=== PATIENT | female | born 1970 | race Caucasian/White ===

== ENCOUNTER 2025-01-20 23:46 | Emergency (ER) | payer BC, MEDICAID ==
[~2025-01-20] VITALS: Ht 167.6 cm; Wt 75.9 kg
[~2025-01-20 23:46] MED LIST: BACL10TA PO; GABA300C PO; HYDR50CA PO; PARO-154 PO; TRAZ-256 PO
--- NOTE | 2025-01-21 00:23 | ELECTROCARDIOGRAPH REPORT ---
[facility] Test Date: 2025-01-21 Test Time: 00:19:44 Pat Name: JESUS ANGUIANO Department: [facility] Patient ID: [id number] Room: Gender: F Business Attorney: : 1970 Requested By: ISAIAH DUPREE Order Number: [id number] Reading MD: Measurements Intervals [place] Rate: 97 P: 69 MI: 158 QRS: 66 QRSD: 102 T: 48 QT: 363 QTc: 461 Interpretive Statements Sinus rhythm Abnormal R-wave progression, early transition Probable inferior infarct, old Please click the below link to view image of tracing.
[2025-01-21 00:27] LABS: BASOPHILS # (AUTO) 0.1 X10'3 (0-0.2); BASOPHILS % (AUTO) 0.6 % (0-1); EOSINOPHILS # (AUTO) 0.4 X10'3 (0-0.9); HEMATOCRIT 40.3 % (35.0-45.0); HEMOGLOBIN 13.4 g/dl (12.0-16.0); LYMPHOCYTES # (AUTO) 3.3 X10'3 (1.1-4.8); LYMPHOCYTES % (AUTO) 30.2 % (21-51); MEAN CORPUSCULAR HEMOGLOBIN 26.5 PG (27.0-31.0); MEAN CORPUSCULAR HGB CONC 33.3 g/dL (33.0-36.5); MEAN CORPUSCULAR VOLUME 79.8 FL (78-98); MEAN PLATELET VOLUME 7.6 FL (7.4-10.4); MONOCYTES # (AUTO) 0.9 X10'3 (0-0.9); MONOCYTES % (AUTO) 7.7 % (2-12); NEUTROPHILS # (AUTO) 6.3 X10'3 (1.8-7.7); NEUTROPHILS % (AUTO) 57.5 % (42-75); PLATELET COUNT 256 X10'3 (140-440); RED BLOOD COUNT 5.05 X10'6 (4.20-5.60)
[2025-01-21 00:49] LABS: ALBUMIN 3.5 G/DL (3.4-5.0); ANION GAP 8 (8-16); BLOOD UREA NITROGEN 6 MG/DL (7-18); BUN/CREATININE RATIO 9.2 (10.0-20.0); CALCIUM 8.5 MG/DL (8.5-10.1); CHLORIDE 102 MMOL/L (99-107); CREATININE 0.65 MG/DL (0.40-0.90); GLUCOSE 101 MG/DL (70-104); POTASSIUM 3.6 MMOL/L (3.5-5.1); PRO BRAIN NATRIURETIC PEPTIDE 41 PG/ML (0-125); SODIUM 140 MMOL/L (135-145); TOTAL CARBON DIOXIDE 30.1 MMOL/L (24-32); eCRCL 90 ML/MIN; eGFR > 90 ML/MIN
--- NOTE | 2025-01-21 01:13 | RADIOLOGY REPORT ---
CHEST RADIOGRAPH Indication: CP Technique: Single frontal view of the chest was obtained COMPARISON: None FINDINGS: Lines and Tubes: None Lungs: Clear Pleura: No effusion. No pneumothorax. Cardiomediastinal contours: Unremarkable Bones: Unremarkable IMPRESSION: 1. No acute disease.
[2025-01-21 01:56] VITALS: TEMP 98.1
--- NOTE | 2025-01-21 03:05 | Physician Documentation ---
History of Present Illness ~ General Chief Complaint: Multiple Medical Complaints Stated Complaint: HEAT RELATED ISSUES Time Seen by MD: 01:28 Primary Medical Doctor: YADY OWENS History of Present Illness Initial Comments This is a lady who presents for evaluation of whole body cramping starting today after walking 4 hours in the heat. No particular palliating or aggravating factors. Similar to prior heat exertion, she feels that she might be dehydrated. She feels generally poor. No chest pain or difficulty breathing. No nausea, vomiting, diarrhea, abdominal pain. She states my feet a blowing up. She also tells me that she has "been alcoholic since I was 14, I am coming off alcohol". Last drink this morning. Feels anxious. Educated with the nurse that she needs medication refill, did not mentioned anything to me. Medication Reconciliation Allergies: Coded Allergies: risperidone (Verified Allergy, Intermediate, MUSCLE SPASMS RESTLESS LEGS, 01/21/25) fluoxetine (Verified Allergy, Unknown, 01/21/25) Scheduled Baclofen (Baclofen), 1 TAB PO BID, (Reported) Gabapentin (Neurontin), 300 MG PO DAILY, (Reported) Hydroxyzine Pamoate (Vistaril), 1 CAP PO TID, (Reported) Paroxetine HCl (Paxil), 1 TAB PO DAILY, (Reported) Trazodone HCl (Trazodone HCl), 1 TABLET PO HS, (Reported) Past Medical History Past Medical History: Bronchitis, Cirrohsis, Hepatitis C, Chronic Back Pain, Extremity Fracture, Anxiety, Depression, Panic Disorder Past Surgical History: cholecystectomy, orthopedic surgeries Alcohol Use: Alcoholic Drug Use: methamphetamine Lives In: Homeless Occupation: unemployed Review of Systems ROS 10 point review of systems was performed and unless noted above in HPI is negative for acute process/complaint. Physical Exam Physical Exam Vital Signs: Temperature: 98.1, Source: Oral, Heart Rate: 89, Respiratory Rate: 13, BP: 121/77, Pulse Oximetry: 100, Weight: 75.910 Oxygen Flow Rate: 0 Physical Exam Physical examination: GENERAL: Awake, alert, oriented, GCS 15, no apparent distress, non-toxic appearing, answers questions, follows commands appropriately. Examined in bed 11. HEENT: Atraumatic, normocephalic, pupils equal, extraocular muscles intact Active gross movements, sclerae anicteric, mucus membranes moist, no stridor. NECK: Midline, no JVD CARDIOVASCULAR: Good skin perfusion without evidence of pallor, mottling. PULMONARY: Nonlabored, symmetric chest rise, no audible wheezing, no accessory muscle use, no respiratory distress, speaking in full sentences. GASTROINTESTINAL: Not distended. NEUROLOGIC: Lucid with normal mental status. Normal facial symmetry. Moves all extremities symmetrically and with purpose. No truncal ataxia. Speech is fluid without evidence of dysarthria or aphasia, no focal deficits appreciated. EXTREMITIES: Acute deformities Skin: warm, dry PSYCHIATRIC: Normal affect, normal insight, normal concentration. Focused exam: [] No tongue fasciculation, no tremor Progress Results/Orders Results/Orders Orders - YUNG DUPREE DO Chest,Single View (01/21/25 00:31) Monitor (01/21/25 00:12) Saline Lock (01/21/25 00:12) Oxygen (01/21/25 00:12) Hs Troponin I W Calculations (01/21/25 03:12) Completed Orders - YUNG DUPREE DO Chest,Single View (01/21/25 00:31) Cbc/Diff (01/21/25 00:12) BMP (01/21/25 00:12) PBNP (01/21/25 00:12) Electrocardiogram (01/21/25 00:12) Hs Troponin I W Calculations (01/21/25 00:12) Hs Troponin I W Calculations (01/21/25 02:12) Vital Signs 01/21/25 01/21/25 00:06 01:56 Temp 98.1 98.1 Pulse 97 89 Resp 16 13 B/P (MAP) 147/91 121/77 (92) Pulse Ox 97 100 O2 Flow Rate 0 0 Laboratory Tests Test 01/21/25 00:21 01/21/25 02:03 White Blood Count 11.0 Red Blood Count 5.05 Hemoglobin 13.4 Hematocrit 40.3 Mean Corpuscular Volume 79.8 Mean Corpuscular Hemoglobin 26.5 L Mean Corpuscular Hemoglobin Concent 33.3 Red Cell Distribution Width 13.0 Platelet Count 256 Mean Platelet Volume 7.6 Neutrophils (%) (Auto) 57.5 Lymphocytes (%) (Auto) 30.2 Monocytes (%) (Auto) 7.7 Eosinophils (%) (Auto) 4.0 Basophils (%) (Auto) 0.6 Neutrophils # (Auto) 6.3 Lymphocytes # (Auto) 3.3 Monocytes # (Auto) 0.9 Eosinophils # (Auto) 0.4 Basophils # (Auto) 0.1 CBC Comment Sodium Level 140 Potassium Level 3.6 Chloride Level 102 Carbon Dioxide Level 30.1 Anion Gap 8 Blood Urea Nitrogen 6 L Creatinine 0.65 Estimated GFR/1.73 m2 > 90 BUN/Creatinine Ratio 9.2 L Glucose Level 101 Calcium Level 8.5 Troponin I High Sensitivity 4 < 4 L Pro-B-Type Natriuretic Peptide 41 Albumin 3.5 Chemistry Comments Troponin I High Sens Percent Delta Troponin I Hi Sens Absolute Change Medical Decision Making Findings Facility Status: ED Holds, RME process The plan was discussed with the patient, who demonstrates clear understanding of the plan and is in agreement with the plan unless otherwise noted in the chart. All questions have been answered, all concerns were addressed unless otherwise documented. I was available throughout their ED stay for frequent reassessment and questions. Differential Diagnoses (considered and possible or likely): [Dehydration, electrolyte derangement, less likely ACS, less likely infectious process, clinically not consistent with the alcohol withdrawal the alcoholism is on dif ferential diagnosis] ??Differential Diagnoses (considered and unlikely, not requiring evaluation currently): [No evidence of lateralizing sinuses suspect a stroke] MDM Data Please see [facility] for the following: Independent Historians and external Records Review. Historian: [Patient] Independent Historians: ?[Non] Medication Management: [Reviewed medication list] Social History and determinants: [Reviewed] Please see the body of the note for the following: Any independent interpretations of ECG, imaging studies. All vitals signs/haemodynamics, ordered tests were independently reviewed and interpreted by myself. Nursing triage complaint and vitals reviewed, additional nursing notes were reviewed as available and I agree unless otherwise noted or documented in contradiction in the chart Vital Signs: Independently reviewed Labs: Independently interpreted Imaging: Independently interpreted Old Medical Records: Independently reviewed, see [facility] for relevant summary and information Pulse Oximetry: [97%] interpreted as [normal on room air] by me [Procurement Professional: [Regular Rate, Regular rhythm, no ectopy, NSR] reviewed and interpreted by me] Additionally notably showing: [No hemodynamic evidence of alcohol withdrawal. Hemodynamically stable. Laboratory workup was unremarkable. Normal renal function.] No evidence of electrolyte derangement to dehydration. Tests considered but not ordered include: [Advanced imaging does not appear to be necessary] Social Determinants of Health Impact: Patient was evaluated in [facility], or [facility] [place] with [place] access to healthcare due to below par ratio of patient to medical providers. [] Comorbid Conditions Impacting Present Evaluation and Care/Treatment: [Self- reported alcoholism] Management Discussions with other Healthcare Providers: [None] Treatment and Disposition Medication Management (Given or considered): [IV fluids has been considerably does not appear to be necessary consent with the patient is able to tolerate p.o.]. See EMR for details Consideration for Hospitalization/Escalation/Deescalation of Care: Admission for observation has been considered, [however the patient is able to tolerate p.o., their symptoms are controlled, they are able to rely on oral medications, and their chief complaint/diagnosis can be managed on outpatient basis.] ?ED Course:?[No clinical deterioration] ?Shared decision making:?[Patient is hemodynamically stable for discharge home with follow with their primary care provider. [ ] Specific and cautious return precautions provided and discussed with full understanding. Any incidental findings were also discussed and follow up recommendations given. [] All questions answered. Patient/family were able to verbalize back return precautions. Patient/family agree to plan. Copies of imaging and laboratory studies were provided.] Code status:?FULL Please see the full Electronic Medical Record for full details of nursing documentation, medications list, other records of complete past medical history and conditions, vital signs, laboratory studies, and any radiologic study interpretations by radiologists. Portions of this note were completed using [employer] dictation software and as a result there may exist minor errors in spelling. I have reviewed elements of past family and social history and agree as included in note. Departure Disposition: 01 HOME / SELF CARE / HOMELESS Impression: Primary Impression: Heat exhaustion Additional Impressions: Muscle cramps Alcoholism Condition: Improved Referrals: NO PRIMARY CARE PROVIDER (PCP) Education Educated: Patient Educated regarding: diagnosis, treatment, prognosis, need for follow up Signature Scribe Signature: No scribe Attestation: This note accurately reflects clinical decisions, work performed by myself, Yung Dupree, YUNG VELASQUEZ DO Jan 21, 2025 03:05
[2025-01-21 03:20] VITALS: BP 117/89; PULSE 88; RESP 18; O2SAT 100
== END 2025-01-21 03:25 | disposition home or self-care (01) ==
LOC: ER 23:47
DX: T67.5XXA Heat exhaustion, unspecified, initial encounter (principal); R25.2 Cramp and spasm; F10.90 Alcohol use, unspecified, uncomplicated; F41.9 Anxiety disorder, unspecified; F32.A Depression, unspecified; F15.90 Other stimulant use, unspecified, uncomplicated; R06.02 Shortness of breath; X30.XXXA Exposure to excessive natural heat, initial encounter; Y93.89 Activity, other specified; Y92.89 Other specified places as the place of occurrence of the external cause; Y99.8 Other external cause status; Y90.9 Presence of alcohol in blood, level not specified
CPT/HCPCS: 36415; 71045; 80048; 83880; 84484; 85025; 93005; 99285